=== PATIENT | female | born 1950 | race Caucasian/White ===

== ENCOUNTER 2016-08-07 07:02 | Day surgery (SDC) | payer MEDICARE, OTHER ==
[~2016-08-07] VITALS: Ht 162.6 cm; Wt 68.9 kg
[~2016-08-07 07:02] MED LIST: ARIP15TA6 PO; ASPI81CH43 PO; ATOR10TA52 PO; CEFT1INJ6 IV; CLOP75TA28 PO; EMTRTAB10 PO; HYDR-4663 PO; MID10T PO; SODI650T PO; VENL75TA PO
[2016-08-07] MEDS ORDERED: LIDOCAINE VISCOUS 2% 15ML UD ONE (07:49)
[2016-08-07] MEDS ORDERED: BENZOCAINE (DENTAL) 20 % SPRAY 60ML MT ONE (07:49)
[2016-08-07] MEDS ORDERED: NALOXONE HCL 0.4 MG/ML VIAL ONE (07:49)
[2016-08-07] MEDS ORDERED: MIDAZOLAM HCL 1MG/1ML-2 ML VIAL ONE (07:50)
[2016-08-07] MEDS ORDERED: FLUMAZENIL 0.1 MG/ML INJ 10ML MDV IV ONE (07:50)
[2016-08-07] MEDS ORDERED: fentaNYL CITRATE 100 MCG/2 ML VL ONE (07:50)
[2016-08-07] MEDS ORDERED: MIDAZOLAM HCL 1MG/1ML-2 ML VIAL IV ONE (08:15)
[2016-08-07] MEDS ORDERED: LIDOCAINE VISCOUS 2% 15ML UD MT PRN (08:15)
[2016-08-07] MEDS ORDERED: fentaNYL CITRATE 100 MCG/2 ML VL IV ONE (08:15)
== END 2016-08-07 10:05 | disposition home or self-care (01) ==
LOC: CATH 07:02
PROVIDERS: ATTEND Specialist
DX: I70.0 Atherosclerosis of aorta (principal); I50.9 Heart failure, unspecified; I10 Essential (primary) hypertension; N19 Unspecified kidney failure; M06.9 Rheumatoid arthritis, unspecified; I63.9 Cerebral infarction, unspecified; G45.9 Transient cerebral ischemic attack, unspecified; E11.22 Type 2 diabetes mellitus with diabetic chronic kidney disease; N18.9 Chronic kidney disease, unspecified; Z99.2 Dependence on renal dialysis
CPT/HCPCS: 93312; J2250; J3010